=== PATIENT | female | born 1955 | race Caucasian/White ===

== ENCOUNTER 2023-04-04 18:20 | Inpatient (IN) | payer MEDICARE, SELFPAY ==
[2023-04-04 18:28] VITALS: BP 116/80; BP 152/90; PULSE 87; PULSE 98; RESP 18; TEMP 36.3; O2SAT 100; O2SAT 98; BMI 20.4
--- NOTE | 2023-04-04 18:59 | ECG_ITS ---
Test Reason : clearence Blood Pressure : / mmHG Vent. Rate : 064 BPM Atrial Rate : 064 BPM P-R Int : 162 ms QRS Dur : 084 ms QT Int : 388 ms P-R-T Axes : 030 074 061 degrees QTc Int : 400 ms Normal sinus rhythm Normal ECG When compared with ECG of 08-JUL-2016 22:37, No significant change was found Referred By: Macie Morales Electronically Signed By:MARLEY COLINDRES
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
[2023-04-04 19:23] LABS: Appearance Urine Clear; Color Urine Yellow; Glucose Urine UA Negative (Negative); Leukocyte Esterase Urine Small (1+) (Negative); Nitrite Urine Negative (Negative); PH 5.5 (5.0-9.0); Specific Gravity - Urine >= 1.030 (1.005-1.025); UMIC TRIGGER UACC YES; Urine Blood Negative (Negative); Urine Ketones Negative (Negative); Urine Protein Trace mg/dL (Neg-Trace)
[2023-04-04 19:31] LABS: Amphetamine Screen Urine Not Detected (Not Detect); Barbiturates, Urine Not Detected (Not Detect); Benzodiazepines Screen Urine Not Detected (Not Detect); Cannabinoid Screen Urine Not Detected (Not Detect); Cocaine Screen Urine Not Detected (Not Detect); Fentanyl, urine Not Detected (Not Detect); Opiate Screen Urine Not Detected (Not Detect); Phencyclidine Screen Urine Not Detected (Not Detect)
[2023-04-04 19:36] LABS: Bacteria Urine None Seen (None Seen); Hyaline Casts Urine 0-2 /LPF (0-2); UACC Culture Trigger YES
[2023-04-04 20:01] LABS: MANUAL DIFF FLAG NO
[2023-04-04 20:16] LABS: Basophils Absolute Auto 0.1 X10*3/uL (0.0-0.2); Basophils Percent Auto 0.6 % (0-2); Eosinophils Absolute Auto 0.1 X10*3/uL (0.0-0.4); Eosinophils Percent Auto 1.7 % (0-4); Hematocrit 35.1 % (37.0-47.0); Hemoglobin 11.4 g/dl (12.0-16.0); Imm Gran Abs Auto 0.07 X10*3/uL (0.00-0.03); Imm Gran Pct Auto 0.9 % (0.0-0.4); Lymphocytes Absolute Auto 1.5 X10*3/uL (1.2-4.9); Lymphocytes Percent Auto 18.8 % (20-40); Mean Corpuscular HGB Conc 32.5 g/dl (31.0-35.0); Mean Corpuscular Hemoglobin 27.5 pg (27.0-33.0); Mean Corpuscular Volume 84.6 fL (80.0-98.0); Mean Platelet Volume 9.6 fL (9.4-12.3); Monocytes Absolute Auto 0.7 X10*3/uL (0.1-1.2); Monocytes Percent Auto 8.9 % (2-11); Neutrophils Absolute Auto 5.4 x10*3/uL (2.0-8.3); Neutrophils Percent Auto 69.1 % (45-73); Platelet Count 258 X10*3/uL (160-400); Red Blood Count 4.15 X10*6/uL (4.20-5.50); Red Cell Distribution Width 12.9 % (11.0-16.0); White Blood Count 7.9 X10*3/uL (4.8-10.8)
[2023-04-04 20:23] LABS: Alanine Aminotransferase 16 U/L (0-31); Albumin Level 4.3 g/dL (3.5-5.0); Alkaline Phosphatase 57 U/L (39-117); Anion Gap 13 (12-20); Aspartate Amino Transferase 21 U/L (5-31); Bilirubin Total 0.3 mg/dL (0.0-1.0); Blood Urea Nitrogen 24 mg/dL (9-16); Calcium 9.8 mg/dL (8.4-10.2); Carbon Dioxide 27 mmol/L (22-29); Chloride 104 mmol/L (96-108); Creatinine Clr Calc Pharmacy 54.8; Estimated Glomerular Filt Rate > 60; Ethanol < 10 mg/dL; Glucose Random 125 mg/dL (60-115); Potassium 3.9 mmol/L (3.3-5.1); Sodium 140 mmol/L (135-145); Total Protein 7.7 g/dL (6.5-8.0)
[2023-04-04 20:29] LABS: COVID-19 Test Negative (Negative); IDNOW Serial# 08D9AD1C
[2023-04-04 20:38] LABS: TSH reflex Free T4 2.23 uIU/mL (0.32-4.0)
--- NOTE | 2023-04-05 06:02 | PC.NURSE ---
Patient slept through the night, no distress observed/reported, with much difficulty we were able to convince patient to provide urine sample and for blood draw but patient vehemently refusing have EKG done, provider notified, med rec completed/currently not on any medication, coherent, no paranoid ideation exhibited, patient assessed by [facility] in the community with disposition involuntary inpatient bed search, will continue to monitor.
[2023-04-05 06:06] VITALS: BP 110/74; PULSE 67; RESP 16; TEMP 36.4; O2SAT 98
--- NOTE | 2023-04-05 06:07 | MHC.EDTECH ---
pt refusing EKG at this time. RN MADE AWARE.
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
[2023-04-05 14:15] VITALS: BP 121/58; PULSE 80; RESP 16; TEMP 36.8; O2SAT 99
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
[2023-04-05 18:00] VITALS: BP 116/54; PULSE 60; RESP 18; TEMP 36.6; O2SAT 96
[2023-04-06 07:00] VITALS: BMI 19.8
[2023-04-06 07:30] VITALS: BP 109/64; PULSE 87; RESP 16; TEMP 36.8; O2SAT 97
[2023-04-06 08:32] LABS: Alanine Aminotransferase 15 U/L (0-31); Albumin Level 4.5 g/dL (3.5-5.0); Alkaline Phosphatase 54 U/L (39-117); Anion Gap 12 (12-20); Aspartate Amino Transferase 19 U/L (5-31); Bilirubin Total 0.4 mg/dL (0.0-1.0); Blood Urea Nitrogen 21 mg/dL (9-16); Carbon Dioxide 29 mmol/L (22-29); Chloride 103 mmol/L (96-108); Cholesterol 217 mg/dL (<200); Creatinine Clr Calc Pharmacy 53.6; Estimated Glomerular Filt Rate > 60; Glucose Fasting 124 mg/dL (60-99); HDL Cholesterol 73 mg/dL (>40); LDL Cholesterol Calculated 134 mg/dL (<100); Potassium 4.4 mmol/L (3.3-5.1); Sodium 140 mmol/L (135-145); Triglycerides 51 mg/dL (<150)
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
[2023-04-06 18:00] VITALS: BP 112/70; PULSE 80; RESP 18; TEMP 36.9; O2SAT 98
[2023-04-07 08:00] VITALS: PULSE 78; RESP 18; TEMP 33.4; O2SAT 98
--- NOTE | 2023-04-07 12:19 | P.PNPSI_ITS ---
Subjective Subjective Date of Service: 04/07/23 Reason For Visit: Psychosis Subjective Notes: Section 12B Interim History: The nursing staff reported the patient had been cheerful alert the x3, grandiose at times. She has decline p.r.n. medications. Today in the morning she was seen self dialogue in but easily redirectable. The occupational therapist reported that she is paranoid and she does not want to go to groups. We tried to do a cognitive assessment and she refused to participate on the [place]. The vp digital marketing social media and crm reported the apparently she had court yesterday for that TROl. I tried to contact his brother and I did not provide him any clinical information asking just the situation of her housing. Apparently they information was confirmed that she had been living in a house without electricity, running water or heating. Her house had being foreclosed and TRO was issued so she can leave the property. On interview the patient denies new symptoms she states that she wants to go back in the community even though that she is technically homeless and she cannot believe that she cannot go back to her home. Mental Status Exam Mental Status Exam Patient Appearance: Appropriate Patient Orientation: Person and Situation Level of Consciousness: Awake and Appropriate Patient Behavior: Guarded and Good Eye Contact Mood Description: Calm and Apprehensive Affect Description: Cheerful and Apprehensive Ability to Follow Directions: Fair Speech Pattern: Clear Hallucinations: None Delusions: Paranoid Ideation and Grandiose Thought Process: Illogical and Distracted Thought Content: positive for Perseveration and positive for Tangential Judgement: Poor Diagnostics Vital Signs (24Hr): Vital Signs - 24 hr 04/06/23 18:00 04/07/23 08:00 Temperature 98.5 F 92.1 F L Pulse Rate 80 78 Respiratory Rate 18 18 Blood Pressure 112/70 Pulse Oximetry 98 98 Oxygen Delivery Method Room Air Room Air BMI result Body Mass Index 19.8 Labs 04/04/23 19:52 04/06/23 07:56 Labs: Laboratory Results - last 48 hr 04/06/23 07:56 Sodium 140 Potassium 4.4 Chloride 103 Carbon Dioxide 29 Anion Gap 12 BUN 21 H Creatinine 0.85 Estim Creat Clear Calc 53.6 Estimated GFR > 60 Fasting Glucose 124 H Calcium 10.0 Total Bilirubin 0.4 AST 19 ALT 15 Alkaline Phosphatase 54 Total Protein 8.0 Albumin 4.5 Triglycerides 51 Cholesterol 217 H LDL Cholesterol, Calc 134 H HDL Cholesterol 73 Medications Medications Current Medications Acetaminophen (Acetaminophen 325 Mg Tablet) 650 mg PO Q6H PRN PRN Reason: Headache/Pain Mild Scale (1-3) Al Hydroxide/Mg Hydroxide (Magnesium Hydrox/Alum Hydrox 30 Ml Oral.Susp) 30 ml PO Q6H PRN PRN Reason: Heartburn/Nausea Haloperidol (Haloperidol 1 Mg Tablet) 2 mg PO Q6H PRN PRN Reason: psychotic agitation Hydroxyzine HCl (Hydroxyzine Hcl 25 Mg Tablet) 25 mg PO Q6H PRN PRN Reason: Anxiety Magnesium Hydroxide (Milk Of Magnesia 30 Ml Oral.Susp) 30 ml PO DAILY PRN PRN Reason: Constipation Trazodone HCl (Trazodone Hcl 50 Mg Tablet) 50 mg PO BEDTIME MRX1 PRN PRN Reason: Insomnia Allergies Allergies Allergy/AdvReac Type Severity Reaction Status Date / Time codeine [CODEINE] AdvReac Mild STOMACH Unverified 03/26/20 18:30 UPSET Sulfa (Sulfonamide AdvReac Mild STOMACH Unverified 03/26/20 18:30 Antibiotics) UPSET [SULFA(SULFONAMIDE ANTIBIOTICS)] Assessment & Plan Assessment & Plan (1) Acute psychosis: Status: Acute Code(s): F23 - Brief psychotic disorder Plan Elderly female with a long history of psychosis that has been untreated who currently has lost her social network and now house due to her psychosis. No social support admitted for disorganization and able to take care of herself. Plan 1. Gather collateral information. 2. We will need to filed for Section 7 and 8 since the patient is refusing to sign CV and she does not have any insight into her condition. We will reassess after the weekend. 3. Continue with medical workout Reason for continued inpatient stay Substantial Risk for: inability to function, rapid decompensation and med/psych decompensation Time Spent With Patient Time: Total time managing care of this patient today __20__ minutes.
[2023-04-07 19:57] VITALS: BP 123/60; PULSE 73; RESP 16; TEMP 36.4; O2SAT 98
[2023-04-08 08:00] VITALS: BP 118/77; PULSE 78; RESP 18; TEMP 36.2; O2SAT 99
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
[2023-04-08 18:00] VITALS: BP 138/56; PULSE 73; RESP 17; TEMP 36.7; O2SAT 99
[2023-04-09 06:00] VITALS: BP 125/56; PULSE 84; RESP 18; TEMP 36.8; O2SAT 98
--- NOTE | 2023-04-09 11:10 | P.PNPSI_ITS ---
Subjective Subjective Date of Service: 04/09/23 Reason For Visit: Psychosis Interim History: irritable, moderately labile. 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 per staff, no change in presentation, no notable behaviors. Mental Status Exam Mental Status Exam Patient Appearance: Appropriate Patient Orientation: Person and Situation Level of Consciousness: Awake and Appropriate Patient Behavior: Guarded and Good Eye Contact Mood Description: Labile and Angry Affect Description: Suspicious, Constricted, Hostile, Labile and Angry Ability to Follow Directions: Fair Speech Pattern: Clear Hallucinations: None Delusions: Paranoid Ideation and Grandiose Thought Process: Illogical and Distracted Thought Content: positive for Perseveration and positive for Tangential Judgement: Poor Diagnostics Vital Signs (24Hr): Vital Signs - 24 hr 04/08/23 18:00 04/09/23 06:00 Temperature 98.0 F 98.2 F Pulse Rate 73 84 Respiratory Rate 17 18 Blood Pressure 138/56 L 125/56 L Pulse Oximetry 99 98 Oxygen Delivery Method Room Air Room Air BMI result Body Mass Index 19.8 Labs 04/04/23 19:52 04/06/23 07:56 Medications Medications Current Medications Acetaminophen (Acetaminophen 325 Mg Tablet) 650 mg PO Q6H PRN PRN Reason: Headache/Pain Mild Scale (1-3) Al Hydroxide/Mg Hydroxide (Magnesium Hydrox/Alum Hydrox 30 Ml Oral.Susp) 30 ml PO Q6H PRN PRN Reason: Heartburn/Nausea Haloperidol (Haloperidol 1 Mg Tablet) 2 mg PO Q6H PRN PRN Reason: psychotic agitation Hydroxyzine HCl (Hydroxyzine Hcl 25 Mg Tablet) 25 mg PO Q6H PRN PRN Reason: Anxiety Magnesium Hydroxide (Milk Of Magnesia 30 Ml Oral.Susp) 30 ml PO DAILY PRN PRN Reason: Constipation Olanzapine (Olanzapine 5 Mg Tablet) 5 mg PO BEDTIME SANDY Last Admin: 04/08/23 21:47 Dose: Not Given Trazodone HCl (Trazodone Hcl 50 Mg Tablet) 50 mg PO BEDTIME MRX1 PRN PRN Reason: Insomnia Allergies Allergies Allergy/AdvReac Type Severity Reaction Status Date / Time codeine [CODEINE] AdvReac Mild STOMACH Unverified 03/26/20 18:30 UPSET Sulfa (Sulfonamide AdvReac Mild STOMACH Unverified 03/26/20 18:30 Antibiotics) UPSET [SULFA(SULFONAMIDE ANTIBIOTICS)] Assessment & Plan Assessment & Plan (1) Acute psychosis: Status: Acute Code(s): F23 - Brief psychotic disorder Plan Elderly female with a long history of psychosis that has been untreated who currently has lost her social network and now house due to her psychosis. No social support admitted for disorganization and able to take care of herself. Plan 1. Gather collateral information. 2. We will need to filed for Section 7 and 8 since the patient is refusing to sign CV and she does not have any insight into her condition. We will reassess after the weekend. 3. Continue with medical workout. 04/08: offer anti-psychotics, otherwise continue current mgmt. 04/09: angry/offended at being described as psychotic. no insight into her condition. continue to offer medication. Reason for continued inpatient stay Substantial Risk for: inability to function and rapid decompensation Time Spent With Patient Time: Total time managing care of this patient today ____ minutes.
[2023-04-09 19:40] VITALS: BP 120/58; PULSE 84; RESP 18; TEMP 36.6; O2SAT 97
[2023-04-10 08:00] VITALS: BP 115/61; PULSE 71; RESP 16; TEMP 36.4; O2SAT 100
--- NOTE | 2023-04-10 09:35 | PM.PSYDC ---
DS: Providers Provider Date of Service: 04/10/23 Date of admission: 04/05/23 13:49 Date of discharge: 04/10/23 Primary care physician: None Physician Consults: 04/04/23 19:08 Consult to Care Team Routine Comment: Reason for consultation: psychotic, delusional Attending physician on discharge: Chirag Epperson DS: Diagnosis Discharge Diagnosis (1) Acute psychosis: Status: Acute DS: Medications Discharge Medications Home Medications: Home Medications Medication Instructions Recorded Confirmed No Known Home Meds 04/04/23 04/04/23 Mental Status Exam Mental Status Exam Patient Appearance: Appropriate Patient Orientation: Person, Place, Time and Situation Level of Consciousness: Awake and Appropriate Patient Behavior: Appropriate and Cooperative Mood Description: Calm Affect Description: Constricted Patient Cognition Impaired: No Ability to Follow Directions: Good Speech Pattern: Clear Hallucinations: None Delusions: Paranoid Ideation and Grandiose Thought Process: Linear Thought Content: positive for [place], positive for Circumstantial and positive for Perseveration Judgement: Fair Data Data Completed and Pending Completed studies during hospitalization [Text1]: 04/04/23 04/04/23 04/04/23 19:03 19:52 20:10 WBC 7.9 RBC 4.15 L Hgb 11.4 L Hct 35.1 L MCV 84.6 MCH 27.5 MCHC 32.5 RDW 12.9 Plt Count 258 MPV 9.6 Immature Gran % (Auto) 0.9 H Neut % (Auto) 69.1 Lymph % (Auto) 18.8 L Grand % (Auto) 8.9 Eos % (Auto) 1.7 Baso % (Auto) 0.6 Lymph # (Auto) 1.5 Grand # (Auto) 0.7 Eos # (Auto) 0.1 Baso # (Auto) 0.1 Abs Immat Gran (auto) 0.07 H Absolute Neuts (auto) 5.4 Absolute Nucleated RBC 0.000 Nucleated RBC % (auto) 0.0 Sodium 140 Potassium 3.9 Chloride 104 Carbon Dioxide 27 Anion Gap 13 BUN 24 H Creatinine 0.83 Estim Creat Clear Calc 54.8 Estimated GFR > 60 Random Glucose 125 H Fasting Glucose Calcium 9.8 Total Bilirubin 0.3 AST 21 ALT 16 Alkaline Phosphatase 57 Total Protein 7.7 Albumin 4.3 Triglycerides Cholesterol LDL Cholesterol, Calc HDL Cholesterol TSH 2.23 Urine Color Yellow Urine Appearance Clear Urine pH 5.5 Ur Specific [place] >= 1.030 H Urine Protein Trace Urine Glucose (UA) Negative Urine Ketones Negative Urine Blood Negative Urine Nitrite Negative Ur Leukocyte Esterase Small (1+) H Urine RBC 6-10 H Urine WBC 11-20 H Ur Squamous Epith Cells 3-5 Urine Bacteria None Seen Hyaline Casts 0-2 Urine Opiates Screen Not Detected Urine Fentanyl Screen Not Detected Ur Barbiturates Screen Not Detected Ur Phencyclidine Scrn Not Detected Ur Amphetamines Screen Not Detected U Benzodiazepines Scrn Not Detected Urine Cocaine Screen Not Detected U Marijuana (THC) Screen Not Detected Ethyl Alcohol < 10 COVID-19 ([facility]) Negative COVID-19 Clin Com See Note 04/06/23 07:56 WBC RBC Hgb Hct MCV MCH MCHC RDW Plt Count MPV Immature Gran % (Auto) Neut % (Auto) Lymph % (Auto) Grand % (Auto) Eos % (Auto) Baso % (Auto) Lymph # (Auto) Grand # (Auto) Eos # (Auto) Baso # (Auto) Abs Immat Gran (auto) Absolute Neuts (auto) Absolute Nucleated RBC Nucleated RBC % (auto) Sodium 140 Potassium 4.4 Chloride 103 Carbon Dioxide 29 Anion Gap 12 BUN 21 H Creatinine 0.85 Estim Creat Clear Calc 53.6 Estimated GFR > 60 Random Glucose Fasting Glucose 124 H Calcium 10.0 Total Bilirubin 0.4 AST 19 ALT 15 Alkaline Phosphatase 54 Total Protein 8.0 Albumin 4.5 Triglycerides 51 Cholesterol 217 H LDL Cholesterol, Calc 134 H HDL Cholesterol 73 TSH Urine Color Urine Appearance Urine pH Ur Specific [place] Urine Protein Urine Glucose (UA) Urine Ketones Urine Blood Urine Nitrite Ur Leukocyte Esterase Urine RBC Urine WBC Ur Squamous Epith Cells Urine Bacteria Hyaline Casts Urine Opiates Screen Urine Fentanyl Screen Ur Barbiturates Screen Ur Phencyclidine Scrn Ur Amphetamines Screen U Benzodiazepines Scrn Urine Cocaine Screen U Marijuana (THC) Screen Ethyl Alcohol COVID-19 ([facility]) COVID-19 Clin Com 04/04/23 19:45 Urine clean catch - Urine alvarado top Urine Culture - Final DS: Summary Hospital Course Hospital Course: The patient is a 68-year-old female, with limited social support evicted from her home admitted into the hospital after police came to serve her the no [facility] order since she had been living at her place that legally does not belong to her. She verbalized elusive statements and she was brought into the facility for psychiatric stabilization. She was brought her here on a Section 12 and she refused to sign CV. Please see the [facility] for the admission note for further details. On admission, I examined the patient and she have had some the elusive thoughts but she adamantly denies suicidal, homicidal or unsafe thoughts. She stated that most likely she is the victim of a scam that took over her house and she wants to get legal help 40s. She has verbalized the elusive statements but she is mostly reality based. On admission, I contact her brother who described a long history of elusive statements but no psychiatric help. He is aware that she is technically homeless but he lives in [place]. He wants to help but it is very difficult for him to get involved at this moment. Over the weekend the patient refused to take any medications, she was pleasant, cooperative, future oriented and again, there were no evidence of safety concerns. At this moment, even though the patient has some psychotic symptoms, she does not represent a risk to self or others and she is fully aware that if she goes into her home she could be arrested. She wants to go to the registry in [place] and try to prove that her home has not been sort. Time spent discussing smoking cessation with patient: 3 to 10 minutes Status at Discharge Cognitive/behavioral status at discharge: At baseline Functional status at discharge: independent ambulation Overall status at discharge: patient is back to baseline Time Spent with Patient Time attestation: Total time managing care of this patient today __30__ minutes. Time spent: Less than 30 minutes Discharge Plan Discharge Anticipated Discharge Date/Time: 04/10/23 11:00 Patient Disposition: Home, Self-Care Discharge Diagnosis: Psychosis NOS Discharge Medications: New olanzapine 5 mg Tablet 5 mg PO BEDTIME 30 Days Qty: 30 0RF Discharge Orders: Discharge Order (Routine); Ordered 04/10/23 Ordered By: Chirag Epperson Diet: Advance to usual diet Activity on Discharge: As tolerated Stand Alone Forms: Patient Portal Discharge page Care Plan Goals: The patient refused referral to primary care physician or other services. At this moment no evidence of safety concerns and I do not have grounds to filed for Section 7 and 8 Health Concerns: The patient refused referral to primary care physician Plan of Treatment: Since I do not have legal grounds to keep her here against her will I need to discharge her her. She has refused to sinus CV. There is no evidence of imminent risk to self or others Assessment: Elderly female with a long history of bizarre behaviors and elusive thinking admitted after the police brought her here after serving her with a no trespass in order at her home. The patient stated that she legally owns her home and she is able to take care of herself. There was no evidence of lack of hygiene or safety concerns. At this moment, discharge to the community and she is fully aware that she should then go back to her home, she could get arrested and she stated that she is going to look for legal help. Refused aftercare.
--- NOTE | 2023-04-10 12:23 | PC.NURSE ---
Pt alert and oriented x4. Pt aware of discharge home today. Reported readiness for discharge. Pt refused referral to PCP or other services. Educated on meds. Pt discharged with belongings. Ambulates with steady gait. Left the unit at 11:53, accompanied by the nurse to front of building.
== END 2023-04-10 11:53 | disposition home or self-care (01) | DRG 885 ==
LOC: HO.ED 04-05 07:19 → HO.PGERI 04-05 13:53
PROVIDERS: Admitting Provider Psychiatry & Neurology Psychiatry; Emergency Provider Emergency Medicine; Visit Provider Psychiatry & Neurology Psychiatry
DX: F23 Brief psychotic disorder (principal); Z59.02 Unsheltered homelessness; Z20.822 Contact with and (suspected) exposure to COVID-19; Z59.7 Insufficient social insurance and welfare support
CPT/HCPCS: 36415; 80053; 80061; 80307; 81001; 84443; 85025; 87086; 87635; 93005; 99285

== ENCOUNTER → 2023-04-05 13:49 | Outpatient (BNV) | payer MEDICARE, SELFPAY | PROVIDERS: Admitting Provider Psychiatry & Neurology Psychiatry; Emergency Provider Emergency Medicine; Visit Provider Psychiatry & Neurology Psychiatry | DX: F23 Brief psychotic disorder (principal) | CPT/HCPCS: 90792; 99231; 99238 ==